=== PATIENT | male | born 1955 | race Caucasian/White ===

== ENCOUNTER 2020-01-17 04:35 | Emergency (ER) | payer BC ==
[2020-01-17] MEDS ORDERED: CARDENE 25 MG/10 ML*** 25 MG in Sodium Chloride 0.9% 250 ML 240 ML IV PRN (05:13)
--- NOTE | 2020-01-17 05:21 | ERPHSYRPT ---
- History of Present Illness Time Seen by Provider: 01/17/20 04:59 Source: patient Exam Limitations: no limitations Patient Subjective Stated Complaint: pt states that he woke up this morning feeling fine, pt states he began to have pressure behind his left eye, pt states that it fells like he has a stiff neck, pt states that he could not keep his balance and felt like he was drifting to the left side, pt states that he feels like his voice sounds different, pt states that he has a history of stroke, pt states that he has implant in both eyes, pt states that sensation in left side is different since prior stroke Triage Nursing Assessment: pt came into the er via wheelchair, pt is axo x3, c/o dizziness, c/o pressure behind left eye, pupils 2 mm and PERRL, no facial droop present, hypertensive 213/133, c/o stiff neck, decreased sensation to left side from prior stroke, no drift present in upper and lower extremities, clear lung sounds, clear heart tones, strong pulses in all extremities Physician History: This is a 64-year-old patient presenting to the ED for evaluation of loss of balance and dizziness - he states that he woke up fine around 230 this morning and he was fine until 4 am, he states that around 430 he felt like he was leaning to the left side, did not have any balance, pain in the back of his neck, behind his left eye, states he felt like crap, hence the ED presentation -Patient states that he has a history of stroke 5 years ago with residual numbness and weakness of the left side -On arrival to ED patient's blood pressure is 213/133-patient states that he is a known hypertensive, for his medications so he has not taken them for months, seen his primary care physician for over a year -Patient is also known alcoholic and smoker - he reports that he has intermittent loss of balance when his BP is high - denies fever/nausea/vomiting /exposure to covid/diarrhoea/drug abuse Time of Onset/Last Time Seen Normal: 4 am Timing/Duration: today Severity: moderate Character of Deficits: none Baseline/Normal Cognition: alert oriented x 3 Current Cognition: alert oriented x 3 Baseline Gait: walks w/o assistance Associated Symptoms: denies symptoms, trouble walking Allergies/Adverse Reactions: No Known Drug Allergies Allergy (Unverified 06/22/20 05:06) Hx Tetanus, Diphtheria Vaccination/Date Given: No Hx Influenza Vaccination/Date Given: No Hx Pneumococcal Vaccination/Date Given: No Travel Risk - International Travel Have you traveled outside of the country in past 3 weeks: No - Coronavirus Screening Are you exhibiting any of the following symptoms?: No Close contact with a COVID-19 positive Pt in past 14-21 Days: No - Review of Systems Constitutional: No Symptoms Eyes: No Symptoms Ears, Nose, & Throat: No Symptoms Respiratory: No Symptoms Abdominal/Gastrointestinal: No Symptoms Genitourinary Symptoms: No Symptoms Musculoskeletal: No Symptoms Skin: No Symptoms Neurological: Dizziness Psychological: No Symptoms, Alcohol Abuse Endocrine: No Symptoms All Other Systems: Reviewed and Negative - Past Medical History Pertinent Past Medical History: Yes Neurological History: Stroke ENT History: Glaucoma Cardiac History: Hypertension - Past Surgical History Past Surgical History: No - Social History Smoking Status: Current every day smoker How long have you smoked: YRS Exposure to second hand smoke: No Drug Use: none Patient Lives Alone: Yes - Nursing Vital Signs Nursing Vital Signs: Initial Vital Signs Temperature 98.2 F 01/17/20 04:44 Pulse Rate 79 01/17/20 04:44 Blood Pressure 213/133 01/17/20 04:44 O2 Sat by Pulse Oximetry 100 01/17/20 04:44 Pain Scale Pain Intensity 0 - Vivian Coma Scale Best Eye Response ([place]): (4) open spontaneously Best Verbal Response ([place]): (5) oriented Best Motor Response (Vivian): (6) obeys commands Vivian Total: 15 - Physical Exam General Appearance: no apparent distress Eye Exam: bilateral eye: normal inspection, PERRL, EOMI Ears, Nose, Throat Exam: normal ENT inspection, TMs normal, pharynx normal, moist mucous membranes Neck Exam: normal inspection, non-tender, supple, full range of motion Respiratory: normal breath sounds, lungs clear, No accessory muscle use Cardiovascular: regular rate/rhythm, normal heart sounds, normal peripheral pulses Gastrointestinal: soft, normal bowel sounds, No tenderness, No distention Back Exam: normal inspection, normal range of motion, No CVA tenderness, No vertebral tenderness Extremity Exam: normal inspection, normal range of motion Peripheral Pulses: carotid (R): 4+, carotid (L): 4+, femoral (R): 4+, femoral (L): 4+, dorsalis-pedis (R): 4+, dorsalis-pedis (L): 4+ Mental Status: alert, oriented x 3, 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 Exam: normal hearing, normal speech, PERRL Coordination/Gait: normal finger to nose, abnormal gait Motor/Sensory: no motor deficit, no sensory deficit DTR: bicep (R): 4+, bicep (L): 4+, tricep (R): 4+, tricep (L): 4+, knee (R): 4+, knee (L): 4+, ankle (R): 4+, ankle (L): 4+ Skin Exam: normal color, warm, dry SpO2 Interpretation: normal SpO2: 100 O2 Delivery: Room Air - Course EKG Interpreted by Me: RATE, Sinus Rhythm, NORMAL AXIS, NORMAL INTERVALS, NORMAL QRS, NORMAL ST-T, Other (had LVH ith mild st elevation in V1) Rhythm Strip: Normal Sinus Rhythm Ordered Tests: Active Orders 24 hr Category Date Time Status Accucheck STAT Care 01/17/20 05:10 Active EKG-ER Only STAT Care 01/17/20 05:10 Active NPO (ED) STAT Care 01/17/20 05:00 Active NPO (ED) STAT Care 01/17/20 05:10 Active NPO (ED) STAT Care 01/17/20 05:50 Active CHEST 1 VIEW (PORTABLE) Stat Exams 01/17/20 05:[address] ANGIOGRAPHY NECK [CT] Stat Exams 01/17/20 05:50 Taken CTA HEAD W AND/OR WO CONTRAST [CT] Stat Exams 01/17/20 05:51 Taken HEAD WITHOUT CONTRAST [CT] Stat Exams 01/17/20 05:00 Taken CBC W DIFF Stat Lab 01/17/20 05:22 Completed CMP Stat Lab 01/17/20 05:22 Completed PROTIME WITH INR Stat Lab 01/17/20 05:22 Completed PTT Stat Lab 01/17/20 05:22 Completed TROPONIN Q3H Lab 01/17/20 06:15 Completed TROPONIN Q3H Lab 01/17/20 09:00 Ordered TROPONIN Q3H Lab 01/17/20 12:00 Ordered TROPONIN Q3H Lab 01/17/20 15:00 Ordered TROPONIN Q3H Lab 01/17/20 18:00 Ordered Medication Summary Generic Name Dose Route Start Last Admin Trade Name Freq PRN Reason Stop Dose Admin Nicardipine HCl 25 mg/ Sodium 250 mls @ 0 mls/hr 01/17/20 05:13 01/17/20 06:37 Chloride IV 02/16/20 05:12 100 mls/hr .Q0M PRN 100 mls/hr TITRATE FOR BLOOD PRESSURE Titration Protocol Titrate Discontinued Medications Generic Name Dose Route Start Last Admin Trade Name Freq PRN Reason Stop Dose Admin Sodium Chloride Confirm 01/17/20 05:49 Sodium Chloride 0.9% 250 Ml Administered 01/17/20 05:50 Dose 250 mls @ ud IV .STK-MED ONE Nicardipine HCl Confirm 01/17/20 05:48 Cardene 25 Mg/10 Ml Administered 01/17/20 05:49 Dose 25 mg IV .STK-MED ONE Lab/Rad Data: Laboratory Result Diagrams 01/17/20 05:22 01/17/20 05:22 Laboratory Results 01/17/20 01/17/20 01/17/20 Range/Units 06:15 05:22 05:22 WBC (4.0-10.5) K/mm3 RBC (4.1-5.6) M/mm3 Hgb (12.5-18.0) gm/dl Hct (42-50) % MCV (78-100) fl MCH (26-32) pg MCHC (32-36) g/dl RDW (11.5-14.0) % Plt Count (150-450) K/mm3 MPV (7.5-11.0) fl Gran % (36.0-66.0) % Eos # (Auto) (0-0.5) Absolute Lymphs (auto) (1.0-4.6) Absolute Monos (auto) (0.0-1.3) Lymphocytes % (24.0-44.0) % Monocytes % (0.0-12.0) % Eosinophils % (0.00-5.0) % Basophils % (0.0-0.4) % Absolute Granulocytes (1.4-6.9) Basophils # (0-0.4) PT 10.8 (8.83-12.87) SECONDS INR 0.96 (0.8-3.0) APTT 30.0 (24.1-36.1) SECONDS Sodium 133 L (137-145) mmol/L Potassium 3.8 (3.5-5.1) mmol/L Chloride 100 (98-107) mmol/L Carbon Dioxide 24 (22-30) mmol/L Anion Gap 13.6 (5-15) MEQ/L BUN 22 H (9-20) mg/dL Creatinine 1.26 H (0.66-1.25) mg/dL Estimated GFR > 60.0 ML/MIN Glucose 99 (74-106) mg/dL Calcium 9.3 (8.4-10.2) mg/dL Total Bilirubin 0.20 (0.2-1.3) mg/dL AST 21 (17-59) U/L ALT 14 (0-50) U/L Alkaline Phosphatase 106 (38-126) U/L Troponin I 0.014 (0.000-0.034) ng/mL Serum Total Protein 7.6 (6.3-8.2) g/dL Albumin 4.0 (3.5-5.0) g/dL 01/17/20 Range/Units 05:22 WBC 7.5 (4.0-10.5) K/mm3 RBC 5.05 (4.1-5.6) M/mm3 Hgb 15.3 (12.5-18.0) gm/dl Hct 44.5 (42-50) % MCV 88.1 (78-100) fl MCH 30.3 (26-32) pg MCHC 34.4 (32-36) g/dl RDW 13.5 (11.5-14.0) % Plt Count 223 (150-450) K/mm3 MPV 9.2 (7.5-11.0) fl Gran % 63.3 (36.0-66.0) % Eos # (Auto) 0.46 (0-0.5) Absolute Lymphs (auto) 1.52 (1.0-4.6) Absolute Monos (auto) 0.75 (0.0-1.3) Lymphocytes % 20.3 L (24.0-44.0) % Monocytes % 10.0 (0.0-12.0) % Eosinophils % 6.1 H (0.00-5.0) % Basophils % 0.3 (0.0-0.4) % Absolute Granulocytes 4.75 (1.4-6.9) Basophils # 0.02 (0-0.4) PT (8.83-12.87) SECONDS INR (0.8-3.0) APTT (24.1-36.1) SECONDS Sodium (137-145) mmol/L Potassium (3.5-5.1) mmol/L Chloride (98-107) mmol/L Carbon Dioxide (22-30) mmol/L Anion Gap (5-15) MEQ/L BUN (9-20) mg/dL Creatinine (0.66-1.25) mg/dL Estimated GFR ML/MIN Glucose (74-106) mg/dL Calcium (8.4-10.2) mg/dL Total Bilirubin (0.2-1.3) mg/dL AST (17-59) U/L ALT (0-50) U/L Alkaline Phosphatase (38-126) U/L Troponin I (0.000-0.034) ng/mL Serum Total Protein (6.3-8.2) g/dL Albumin (3.5-5.0) g/dL - Progress Progress: unchanged Progress Note: 01/17/20 05:24 This's a 64 yr old pt. with known HTN, h/o stroke presenting to ED with loss of balance since this am around 4.30 - On arrival he had hypertensive emergrncy with BP 213/133, HR between 65-70 on laboratory monitor rest of VSS - NIH score 0 - Bedside blood sugar - 107 Workup Labs: CBC, CMP, PT,PTT, UA, troponins Results: CMP reveals mild hyponatremia with sodium 133, All other labs WNL, UA and troponins pending Imaging CT head witout contrast- shows no acute intracranial abnormality. CXR Medications given - Nicardepine drip started as pt's HR may not tolerate beta blockers EKG- NSR with no evidence of acute ischemia 01/17/20 05:54 Tele-neurology consulted- report obtained verbally around 5.45 am- advised this could be HTN emergency vs stroke- advised control BP and watch for improvement of s/s, if no improvement- do tpa, advised call back in 30 min - also advised CTA head and neck and MRI brain 01/17/20 06:09 patient did have intermittent episodes of bradycardia with HR in 44-45 lasting 3-4 sec throughout his ED course- at this time pt. did appear diaphoretic, tr oponins pending, EKG at this time showed NSR with rate of 56, evidence of LVH and mild ST elevation in V1. 01/17/20 06:38 CTA head and neck done and results pending Troponins still pending D/W at [facility], Anabella Suarez for transfer of patient for CVA rule out. transfer center requested ED to ED transfer as this's possible CVA rule out Pt. needs MRI brain and we cannot delay rx, [facility] has neurology telephone services sales representative accepted pt. for transfer Currently pt's vitals BP 172/101, OR 73, saturating at 96 % on RA Discussed all of above with pt. who is agreeable to transfer 01/17/20 06:54 Troponins 0.014 Currently BP 184/99, Nicardipine drip dose increased. Pt. stable enough for emergent transfer - Departure Departure Disposition: Transfer Clinical Impression: Hypertensive emergency, possible stroke, Hyponatremia, Uncontrolled hypertension Condition: Stable Critical Care Time: Yes Critical Care Time(excluding separately billable procedures): Critical 30-74 mins (In direct patient care activities) Referrals: DOCTOR,NO FAMILY [Primary Care Provider] -
[2020-01-17 05:27] LABS: Absolute Neutrophil Ct (ANC) 4.75 (1.4-6.9); BASOPHIL % 0.3 % (0.0-0.4); Basophil (Absolute #) 0.02 (0-0.4); Eosinophil % 6.1 % (0.00-5.0); Eosinophil (Absolute #) 0.46 (0-0.5); Hematocrit 44.5 % (42-50); Hemoglobin 15.3 gm/dl (12.5-18.0); Lymphocyte (Absolute #) 1.52 (1.0-4.6); Lymphocytes % 20.3 % (24.0-44.0); Mean Cell Volume 88.1 fl (78-100); Mean Corpuscular Hemoglobin 30.3 pg (26-32); Mean Corpuscular Hgb Concent. 34.4 g/dl (32-36); Mean Platelet Volume 9.2 fl (7.5-11.0); Monocyte (Absolute #) 0.75 (0.0-1.3); Neutrophil % 63.3 % (36.0-66.0); Platelet Count 223 K/mm3 (150-450); Red Blood Count 5.05 M/mm3 (4.1-5.6); Red Cell Distribution Width 13.5 % (11.5-14.0); White Blood Count 7.5 K/mm3 (4.0-10.5)
[2020-01-17 05:31] LABS: INR 0.96 (0.8-3.0); PROTIME 10.8 SECONDS (8.83-12.87)
[2020-01-17 05:37] LABS: ALKALINE PHOSPHATASE 106 U/L (38-126); ANION GAP 13.6 MEQ/L (5-15); BLOOD UREA NITROGEN 22 mg/dL (9-20); CHLORIDE 100 mmol/L (98-107); Calcium 9.3 mg/dL (8.4-10.2); Carbon Dioxide 24 mmol/L (22-30); Creatinine 1 1.26 mg/dL (0.66-1.25); Glucose 99 mg/dL (74-106); Potassium 3.8 mmol/L (3.5-5.1); SGOT/AST 21 U/L (17-59); SGPT/ALT 14 U/L (0-50); SODIUM 133 mmol/L (137-145); Total Protein 7.6 g/dL (6.3-8.2)
[2020-01-17] MEDS ORDERED: CARDENE 25 MG/10 ML IV ONE (05:48)
[2020-01-17] MEDS ORDERED: Sodium Chloride 0.9% 250 ML 250 ML IV ONE (05:49)
[2020-01-17 06:38] VITALS: BP 172/101; PULSE 61
[2020-01-17 06:42] VITALS: O2SAT 100
--- NOTE | 2020-01-17 09:15 | XRAY ---
Indication: Stroke symptoms. Comparison: September 16, 2018. Portable chest remains hyperinflated and clear again with incidental tiny calcified granulomas. Heart is not enlarged. Bony thorax intact again with mild degenerative changes. Impression: Continued nonacute hyperinflated chest with chronic features.
--- NOTE | 2020-01-17 09:17 | XRAY ---
Indication: Left eye pressure. Loss of balance. Sluggish. Multiple contiguous axial images obtained through the head without contrast. Comparison: January 12, 2013. Progressing age-appropriate global atrophy with now minimal periventricular degenerative micro-ischemia bilaterally. New bilateral basal ganglia remote lacunar infarcts, largest left measuring 6 mm. No acute intracranial hemorrhage, abnormal extra-axial fluid collection, or mass effect. Fourth ventricle is midline without hydrocephalus. Bony calvarium intact. Right maxillary sinus demonstrates minimal mucosal thickening. Mastoid air cells are clear. Impression: 1. Aging brain including atrophy and degenerative micro-ischemia. 2. New bilateral basal ganglia remote lacunar infarcts. 3. No acute intracranial abnormalities. 4. Incidental right maxillary sinus disease. Comment: Preliminary interpretation was made by C. No critical discrepancy.
--- NOTE | 2020-01-17 09:28 | XRAY ---
Indication: Diaphoresis. Strokelike symptoms. Conventional contrast enhanced CTA neck was performed using 60 cc Isovue 370 contrast. Two-dimensional sagittal and coronal reformatted images obtained. Comparison: None Visualized aortic arch demonstrates minimal calcifications without aneurysm/dissection. Anatomic variant for bovine arch. Examination of the right carotid circulation demonstrates widely patent common carotid artery and bulb. Proximal internal carotid artery demonstrates very minimal eccentric calcified plaquing. Remaining internal and external carotid arteries are normal in CTA appearance. Examination of the left carotid circulation demonstrates widely patent common carotid artery. Mild calcified plaquing seen at the level of the bulb producing 20-30% stenosis. Remaining internal and external carotid arteries are normal in CTA appearance. 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 Right vertebral artery is normal in course and caliber without critical stenosis/obstruction or AV malformation. CTA head reported separately. Jugular veins are bilaterally unremarkable. Lung apices demonstrates moderate pulmonary emphysema and tiny right apical calcified granuloma. Supra and infraglottic airway widely patent. Parotid and submandibular glands are bilaterally symmetric. No pathologic cervical/supraclavicular lymphadenopathy. Visualized cervical spine intact with minimal/mild C3-C6 and degenerative changes. Patient is edentulous. Impression: 1. Mild left carotid bulb calcified plaquing producing 20-30% % stenosis. 2. Minimal right internal carotid artery calcified plaquing without critical stenosis/obstruction. 3. 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 4. Incidental pulmonary emphysema, chronic bony findings, an anatomic variant for bovine arch.
== END 2020-01-17 07:04 | disposition short-term general hospital (02) ==
LOC: ED 04:35
DX: I16.1 Hypertensive emergency (principal); E22.2 Syndrome of inappropriate secretion of antidiuretic hormone; I10 Essential (primary) hypertension; Z86.73 Personal history of transient ischemic attack (TIA), and cerebral infarction without residual deficits; R42 Dizziness and giddiness
CPT/HCPCS: 70450; 70496; 70498; 80053; 82962; 84484; 85025; 85610; 85730; 93005; 96365; 96366; 99291; Q3014; 36000; 36415; 71045; 99285

== ENCOUNTER 2021-08-08 11:07 | Emergency (ER) | payer BC ==
[2021-08-08] MEDS ORDERED: Catapres 0.1 MG PO ONE (11:29)
[2021-08-08] MEDS ORDERED: Catapres 0.1 MG ONE (11:30)
--- NOTE | 2021-08-08 11:38 | ERPHSYRPT ---
- History of Present Illness Source: patient Exam Limitations: no limitations Patient Subjective Stated Complaint: hypertension Triage Nursing Assessment: Pt sent to the ER from [facility], hypertensive, denies pain, states that he has had high blood pressure his whole life, has been off of his blood pressure meds for 6-7 months due to losing his insurance and has recently got his insurance back, denies headache at this time, pulses normal, denies any other issues Physician History: 65 yo wm sent to ER from clinic w elevated BP. Pt has not taken his antihypertensive meds x 6-7 months. He denies KNOWLES/CP/dyspnea/focal weakness/fever/cough. Timing/Duration: other (Chronic hypertension) Severity: moderate Modifying Factors: Improves With: nothing Associated Symptoms: No nausea, No vomiting, No abdominal pain, No shortness of breath, No heartburn, No diaphoresis, No cough, No chills, No chest pain, No fever, No headaches, No loss of appetite, No malaise, No rash, No syncope, No seizure, No weakness Allergies/Adverse Reactions: No Known Drug Allergies Allergy (Verified 08/08/21 11:19) Hx Tetanus, Diphtheria Vaccination/Date Given: No Hx Influenza Vaccination/Date Given: No Hx Pneumococcal Vaccination/Date Given: No Travel Risk - International Travel Have you traveled outside of the country in past 3 weeks: No - Coronavirus Screening Are you exhibiting any of the following symptoms?: No Close contact with a COVID-19 positive Pt in past 14-21 Days: No - Vaccine Status Have you recieved a Covid-19 vaccination: No - Review of Systems Constitutional: No Symptoms Eyes: No Symptoms Ears, Nose, & Throat: No Symptoms Respiratory: No Symptoms Cardiac: No Symptoms Abdominal/Gastrointestinal: No Symptoms Genitourinary Symptoms: No Symptoms Musculoskeletal: No Symptoms Skin: No Symptoms Neurological: No Symptoms, No Headache Psychological: No Symptoms Endocrine: No Symptoms Hematologic/Lymphatic: No Symptoms Immunological/Allergic: No Symptoms - Past Medical History Pertinent Past Medical History: Yes Neurological History: Stroke ENT History: Glaucoma Cardiac History: Hypertension Respiratory History: No Pertinent History Endocrine Medical History: No Pertinent History Musculoskeletal History: No Pertinent History GI Medical History: No Pertinent History History: No Pertinent History Psycho-Social History: No Pertinent History Male Reproductive Disorders: No Pertinent History - Past Surgical History Past Surgical History: Yes Neuro Surgical History: No Pertinent History Cardiac: No Pertinent History Respiratory: No Pertinent History Gastrointestinal: No Pertinent History Genitourinary: No Pertinent History Musculoskeletal: No Pertinent History, Orthopedic Surgery Male Surgical History: No Pertinent History Other Surgical History: amputated digit - Social History Smoking Status: Current every day smoker How long have you smoked: YRS Exposure to second hand smoke: Yes Drug Use: none Patient Lives Alone: Yes Significant Family History: no pertinent family hx - Nursing Vital Signs Nursing Vital Signs: Initial Vital Signs Temperature 98.5 F 08/08/21 11:12 Pulse Rate 87 08/08/21 11:12 Respiratory Rate 24 08/08/21 11:12 Blood Pressure 227/119 08/08/21 11:12 O2 Sat by Pulse Oximetry 100 08/08/21 11:12 Pain Scale Pain Intensity 0 Hypertensive - Physical Exam General Appearance: no apparent distress Eye Exam: PERRL/EOMI, eyes nml inspection Ears, Nose, Throat Exam: normal ENT inspection, TMs normal, pharynx normal, moist mucous membranes Neck Exam: normal inspection, non-tender, supple, full range of motion, No meningismus, No mass, No Brudzinski, No Kernig's Respiratory Exam: normal breath sounds, lungs clear, airway intact, No respiratory distress Cardiovascular Exam: regular rate/rhythm, normal heart sounds, normal peripheral pulses, No murmur Gastrointestinal/Abdomen Exam: soft, normal bowel sounds, No tenderness Back Exam: normal inspection, normal range of motion, No CVA tenderness Extremity Exam: normal inspection, normal range of motion Neurologic Exam: alert, oriented x 3, cooperative, [place] former arbor end II-XII nml as tested, normal mood/affect, nml cerebellar function, nml station & gait, sensation nml, No motor deficits, No sensory deficit, No agitation Skin Exam: normal color, warm, dry Lymphatic Exam: No adenopathy SpO2 Interpretation: normal SpO2: 100 O2 Delivery: Room Air - Course Nursing assessment & vital signs reviewed: Yes Ordered Tests: Medication Summary Discontinued Medications Generic Name Dose Route Start Last Admin Trade Name Freq PRN Reason Stop Dose Admin Amlodipine Besylate 5 mg 08/08/21 12:17 08/08/21 12:19 Amlodipine Besylate 5 Mg Tablet PO 08/08/21 12:18 5 mg STAT ONE Administration Amlodipine Besylate Confirm 08/08/21 12:18 Amlodipine Besylate 5 Mg Tablet Administered 08/08/21 12:19 Dose 5 mg .ROUTE .STK-MED ONE Clonidine 0.2 mg 08/08/21 11:29 08/08/21 11:31 Clonidine Hcl 0.1 Mg Tablet PO 08/08/21 11:30 0.2 mg STAT ONE Administration Clonidine Confirm 08/08/21 11:30 Clonidine Hcl 0.1 Mg Tablet Administered 08/08/21 11:31 Dose 0.2 mg .ROUTE .STK-MED ONE - Progress Progress: improved Progress Note: 08/08/21 12:37 0.2 po Clonidine/5mg po Norvasc w decrease in BP Counseled pt/family regarding: diagnosis, need for follow-up - Departure Departure Disposition: Home Clinical Impression: HTN (hypertension), Hypertensive urgency Condition: Stable Critical Care Time: No Referrals: ROSAMARIA POWER MD [Primary Care Provider] - Follow up/PCP as directed Instructions: Malignant Hypertension (DC) Additional Instructions: Start Norvasc once a day Follow up with your family MD in 5-7 days Return to ER for severe, unremitting headache/Focal weakness/Chest pain/Temperature greater than 100.5 Prescriptions: Amlodipine Besylate 5 mg [Norvasc 5 mg] 5 mg PO DAILY #60 tablet
[2021-08-08] MEDS ORDERED: NORVASC 5 MG PO ONE (12:17)
[2021-08-08] MEDS ORDERED: NORVASC 5 MG ONE (12:18)
[2021-08-08 12:43] VITALS: BP 174/106; PULSE 73
[2021-08-08 20:30] VITALS: O2SAT 100
== END 2021-08-08 12:48 | disposition home or self-care (01) ==
LOC: ED 11:07
DX: I16.0 Hypertensive urgency (principal); I10 Essential (primary) hypertension; Z72.0 Tobacco use; Z86.73 Personal history of transient ischemic attack (TIA), and cerebral infarction without residual deficits; T46.5X6A Underdosing of other antihypertensive drugs, initial encounter; Z91.120 Patient's intentional underdosing of medication regimen due to financial hardship
CPT/HCPCS: 99283; A9270-GY